=== PATIENT | male | born 1995 | race Caucasian/White ===

== ENCOUNTER 2016-07-16 13:38 | Emergency (ER) | payer MEDICAID ==
[~2016-07-16] VITALS: Ht 172.7 cm; Wt 77.1 kg
--- NOTE | 2016-07-16 13:54 | NUR ---
PT IS IN ROOM #2A. DR BOONE EVALUATED THE PT.
--- NOTE | 2016-07-16 14:07 | NUR ---
PT WAS D/C TO HOME. D/C INSTRUCTIONS GIVEN TO THE PT.
[2016-07-16 14:08] VITALS: BP 141/92
== END 2016-07-16 14:09 | disposition home or self-care (01) ==
LOC: ER 13:38
DX: J06.9 Acute upper respiratory infection, unspecified (principal); F41.9 Anxiety disorder, unspecified; Z90.49 Acquired absence of other specified parts of digestive tract
CPT/HCPCS: A4663

== ENCOUNTER 2016-08-30 13:20 | Emergency (ER) | payer MEDICAID ==
[~2016-08-30] VITALS: Ht 172.7 cm; Wt 72.6 kg
--- NOTE | 2016-08-30 13:56 | NUR ---
NIGHAT MARSH AT THE BEDSIDE.
--- NOTE | 2016-08-30 14:18 | NUR ---
MSE COMP-LETED, PT D/C'D HOME, ACI/RX X1 GIVEN TO PT. PT AMBULATED W/O DIFF/TOOK ALL BELONGINGS.
[2016-08-30 14:20] VITALS: BP 140/72
== END 2016-08-30 14:20 | disposition home or self-care (01) ==
LOC: ER 13:24
DX: N45.1 Epididymitis (principal); F41.9 Anxiety disorder, unspecified
CPT/HCPCS: 76870; A4663

== ENCOUNTER 2016-09-13 18:25 | Emergency (ER) | payer MEDICAID ==
[~2016-09-13] VITALS: Ht 175.3 cm; Wt 77.1 kg
--- NOTE | 2016-09-13 19:15 | NUR ---
Dr. Basilio at bedside for eval.
--- NOTE | 2016-09-13 19:51 | NUR ---
Patient discharged to home in stable conditon. Written and verbal after care instructions given. Patient verbalizes understanding of instructions. Patient left with stable gait, accompanied by family.
[2016-09-13 19:52] VITALS: BP 120/89
== END 2016-09-13 19:53 | disposition home or self-care (01) ==
LOC: ER 18:27
DX: N41.9 Inflammatory disease of prostate, unspecified (principal); Z90.49 Acquired absence of other specified parts of digestive tract
CPT/HCPCS: A4663

== ENCOUNTER 2016-10-03 19:12 | Emergency (ER) | payer MEDICAID ==
[~2016-10-03] VITALS: Ht 170.2 cm; Wt 81.6 kg
[2016-10-03] MEDS ORDERED: DOXYCYCLINE HYCLATE 100 MG TABLET PO ONE (20:00)
--- NOTE | 2016-10-03 20:00 | NUR ---
Patient discharged to home in stable conditon. Written and verbal after care instructions given. Patient verbalizes understanding of instructions.
[2016-10-03] MEDS ORDERED: DOXYCYCLINE HYCLATE 100 MG TABLET ONE (20:07)
== END 2016-10-03 20:01 | disposition home or self-care (01) ==
LOC: ER 19:15
DX: F41.9 Anxiety disorder, unspecified (principal); N41.9 Inflammatory disease of prostate, unspecified; F32.9 Major depressive disorder, single episode, unspecified; Z90.49 Acquired absence of other specified parts of digestive tract
CPT/HCPCS: A4663

== ENCOUNTER 2016-12-13 17:41 | Emergency (ER) | payer MEDICAID ==
[~2016-12-13] VITALS: Ht 172.7 cm; Wt 79.4 kg
[2016-12-13] MEDS ORDERED: VITAMIN B6 PO (17:50)
[2016-12-13] MEDS ORDERED: ISONIAZID 300 MG TABLET (17:50)
[2016-12-13 18:16] LABS: *BILIRUBIN,URIN NEGATIVE (NEGATIVE); *BLOOD, URINE NEGATIVE (NEGATIVE); *COLOR,URINE YELLOW (YELLOW); *KETONES,URINE NEGATIVE (NEGATIVE); *PROTEIN,URINE NEGATIVE (NEGATIVE); LEUKOCYTE ESTERASE ,URINE NEGATIVE (NEGATIVE); NITRITE, URINE NEGATIVE (NEGATIVE); PH,URINE 7.5 (5.0-8.0); UGLUCOSE NEGATIVE (NEGATIVE)
[2016-12-13 18:36] LABS: *CLARITY,URINE HAZY (CLEAR)
[2016-12-13 18:40] LABS: MUCUS,URINE MODERATE /LPF (0-FEW); URINE AMORPHOUS PHOSPHATES MODERATE /HPF; WBC,URINE NONE SEEN /HPF (0-3)
--- NOTE | 2016-12-13 19:39 | NUR ---
Patient discharged to home in stable conditon. Written and verbal after care instructions given. Patient verbalizes understanding of instructions.
== END 2016-12-13 19:39 | disposition home or self-care (01) ==
LOC: ER 17:44
DX: F41.9 Anxiety disorder, unspecified (principal); R39.15 Urgency of urination
CPT/HCPCS: 81001; 99284; A4663

== ENCOUNTER 2017-03-21 19:08 | Emergency (ER) | payer MEDICAID ==
[~2017-03-21] VITALS: Ht 172.7 cm; Wt 79.4 kg
[~2017-03-21 19:08] MED LIST: ISONIAZID 300 MG TABLET; VITAMIN B6 PO
--- NOTE | 2017-03-21 20:34 | NUR ---
Patient discharged to home in stable conditon. Written and verbal after care instructions given. Patient verbalizes understanding of instructions.
== END 2017-03-21 20:35 | disposition home or self-care (01) ==
LOC: ER 19:08
DX: J06.9 Acute upper respiratory infection, unspecified (principal)
CPT/HCPCS: 71010; A4663

== ENCOUNTER 2018-03-24 12:52 | Emergency (ER) | payer MEDICAID ==
[~2018-03-24] VITALS: Ht 170.2 cm; Wt 81.6 kg
--- NOTE | 2018-03-24 13:13 | NUR ---
Dr Earl at the bedside for MSE.
--- NOTE | 2018-03-24 13:29 | NUR ---
Patient discharged to home in stable conditon. Written and verbal after care instructions given. Patient verbalizes understanding of instructions.
[2018-03-24 13:30] VITALS: BP 151/92
== END 2018-03-24 13:37 | disposition home or self-care (01) ==
LOC: ER 12:52
DX: J20.9 Acute bronchitis, unspecified (principal); F41.9 Anxiety disorder, unspecified; I10 Essential (primary) hypertension; Z90.49 Acquired absence of other specified parts of digestive tract; Z79.899 Other long term (current) drug therapy
CPT/HCPCS: A4663

== ENCOUNTER 2020-10-17 12:39 | Emergency (ER) | payer MEDICAID ==
[~2020-10-17] VITALS: Ht 175.3 cm; Wt 90.7 kg
--- NOTE | 2020-10-17 14:25 | NUR ---
Pt states since last week that sounds have been louder than normal, occasionally has ringing and/or buzzing sound, especially in left ear, can cause CLEMENTS, worse at end of day or increased stress, nausea today. Pt denies CP, SOB, dizziness, no other complaints, no distress noted, pt appears anxious.
--- NOTE | 2020-10-17 14:27 | NUR ---
MD at bedside for assessment, patient states his ears have been ringing whenever he hears sound, in particular the left hear has been ringing and is sensitive to sound
--- NOTE | 2020-10-17 14:55 | NUR ---
Patient down for Headt CT at this time
--- NOTE | 2020-10-17 15:09 | NUR ---
Patient back from Head CT at this time
--- NOTE | 2020-10-17 15:33 | NUR ---
Patient discharged to home in stable condition. Written and verbal after care instructions given. Patient verbalizes understanding of instructions. Stressed follow up or return to ER for worsening s/s. Steady gait. No neurological deficits. All belongings with patient.
[2020-10-17 15:34] VITALS: BP 122/76
== END 2020-10-17 15:32 | disposition home or self-care (01) ==
LOC: ER 12:39
DX: G43.909 Migraine, unspecified, not intractable, without status migrainosus (principal); S09.90XA Unspecified injury of head, initial encounter; W21.89XA Striking against or struck by other sports equipment, initial encounter; Y93.18 Activity, surfing, windsurfing and boogie boarding; Y92.832 Beach as the place of occurrence of the external cause; F41.9 Anxiety disorder, unspecified; Z79.899 Other long term (current) drug therapy
CPT/HCPCS: 70450; A4663

== ENCOUNTER 2021-08-29 13:35 | Inpatient (IN) | payer MEDICAID ==
[~2021-08-29] VITALS: Ht 175.3 cm; Wt 88.9 kg
[2021-08-29] MEDS ORDERED: BUSP5TAB3 PO (14:14)
[2021-08-29] MEDS ORDERED: ESCI-9 PO (14:14)
[2021-08-29] MEDS ORDERED: QUET300T2 PO (14:14)
[2021-08-29] MEDS ORDERED: KETOROLAC TROMETHAMINE 15 MG INJ ONE (15:41)
[2021-08-29] MEDS ORDERED: HYDROCODONE/APAP 5-325MG TABLET ONE (15:42)
[2021-08-29] MEDS ORDERED: KETOROLAC TROMETHAMINE 15 MG INJ IM ONE (15:45)
[2021-08-29] MEDS ORDERED: HYDROCODONE/APAP 5-325MG TABLET PO ONE (15:45)
[2021-08-29 17:01] LABS: HEMATOCRIT 42.8 % (36.7-47.1); MEAN CORPUSCULAR HEMOGLOBIN 32.5 uug (23.8-33.4); MEAN CORPUSCULAR VOLUME 93.2 fL (73.0-96.2); PLATELET COUNT (AUTO) 300 K/uL (152-348)
[2021-08-29 17:08] LABS: CREATININE 0.8 mg/dL (0.6-1.3); POTASSIUM 3.9 mmol/L (3.5-5.1)
[2021-08-29] MEDS ORDERED: ACETAMINOPHEN 650 MG SUPP.RECT RC PRN (18:15)
[2021-08-29] MEDS ORDERED: IV D5 1/2 NS 1000 ML 1,000 ML IV PRN (18:15)
[2021-08-29] MEDS ORDERED: LORAZEPAM 2 MG/1 ML VIAL IV PRN (18:15)
[2021-08-29] MEDS ORDERED: ONDANSETRON 4 MG/2 ML VIAL IV PRN (18:15)
[2021-08-29] MEDS ORDERED: MORPHINE SULFATE 2 MG/1 ML DISP.SYRIN IV PRN (18:15)
--- NOTE | 2021-08-29 18:36 | NUR ---
PT'S MOTHER AT BEDSIDE STATING THAT THE PT HAS ANXIETY ISSUES AND HAS BEEN SEEN ON [facility] AND PLACED ON 3 MEDS, RECORDED ON MED RECON, BUT THESE MEDS ARE NOT HELPING AND ASKING IF THESES CAN BE REEVALUATED.
--- NOTE | 2021-08-29 21:25 | NUR ---
Report given to Marie GIBSON
--- NOTE | 2021-08-29 22:00 | NUR ---
Admitted a 25 years old male with Dx of Right Ankle fracture. Patient AAOx4. In no respiratory distress. Slightly anxious during admission. Reassurance provided. Left AC IV intact and patent. Right LE with cast, wrap with harry bandage. Patient for surgery tomorrow with Dr. Clarke. Will be NPO after midnight per Dr. Yates. Routine admission care done. Plan of care initiated. Safety measure initiated and call light within reached.
--- NOTE | 2021-08-29 22:09 | NUR ---
Pt taken to room 321 via tammi with all belongings
[2021-08-29 22:46] VITALS: BP 124/62
[2021-08-29] MEDS ORDERED: QUETIAPINE FUMARATE 100 MG TABLET PO ONE (23:00)
--- NOTE | 2021-08-30 00:45 | NUR ---
Started new IV line on right upper arm #20G. IVF infusing to right upper arm IV.
[2021-08-30 04:10] VITALS: BP 131/59
--- NOTE | 2021-08-30 06:21 | NUR ---
Patient sleeping at this time. NPO status. No complain of pain on RLE. IV site on right upper arm and left AC intact and patent. IVF infusing. Needs attended to and met. Safety measure maintained and call light within reached.
[2021-08-30 06:59] LABS: HEMATOCRIT 38.4 % (36.7-47.1); MEAN CORPUSCULAR HEMOGLOBIN 32.9 uug (23.8-33.4); PLATELET COUNT (AUTO) 261 K/uL (152-348)
[2021-08-30 07:09] LABS: BILIRUBIN,TOTAL 0.7 mg/dL (0.2-1.0); CREATININE 0.8 mg/dL (0.6-1.3); MAGNESIUM 1.9 mg/dL (1.8-2.4); POTASSIUM 3.4 mmol/L (3.5-5.1); TOTAL PROTEIN, SERUM 6.3 g/dL (6.4-8.2)
--- NOTE | 2021-08-30 07:30 | NUR ---
AWAKE ALERT AND VERBALLY RESPONSIVE, ANXIOUS AND WANTS TO GO HOME AFTER SURGERY. AWAITING ORTHO SURGEON TO SEE PATIENT. C/O PAIN RIGHT ANKLE 06/08. ELEVATED WITH PILLOW
[2021-08-30] MEDS ORDERED: VANCOMYCIN 1000 MG VIAL ONE (07:39)
[2021-08-30] MEDS ORDERED: BUPIVACAINE 0.25% 30 ML VIAL ONE (07:39)
[2021-08-30] MEDS: PANTOPRAZOLE SODIUM 40 MG VIAL IV SCH (08:42)
--- NOTE | 2021-08-30 09:18 | NUR ---
PATIENT VERY ANXIOUS AND WANT TO SLEEP, ATIVAN 0.5 MG IVP GIVEN
[2021-08-30] MEDS: POTASSIUM CHLORIDE 50 ML IV SCH ×2 (09:42→10:36)
[2021-08-30 11:00] VITALS: BP 128/62
--- NOTE | 2021-08-30 11:05 | NUR ---
PATIENT WENT TO OR FOR SURGERY REPORT GIVEN TO STAFF
[2021-08-30] MEDS ORDERED: FENTANYL CITRATE 100 MCG/2 ML AMPUL ONE (11:28)
[2021-08-30] MEDS ORDERED: HYDROMORPHONE 2 MG/1 ML DISP.SYRIN ONE (11:29)
[2021-08-30] MEDS ORDERED: MIDAZOLAM HCL 2 MG/2 ML VIAL ONE (11:29)
[2021-08-30] MEDS ORDERED: FAMOTIDINE. 20 MG/2 ML VIAL IV ONE (11:30)
[2021-08-30] MEDS ORDERED: ROCURONIUM BROMIDE 50 MG/5 ML VIAL ONE (11:31)
[2021-08-30] MEDS ORDERED: GLYCOPYRROLATE 0.2 MG/ML VIAL ONE (13:39)
[2021-08-30] MEDS ORDERED: ONDANSETRON 4 MG/2 ML VIAL ONE (13:39)
[2021-08-30] MEDS ORDERED: PROPOFOL 200 MG/20 ML BOTTLE ONE (13:39)
[2021-08-30] MEDS ORDERED: CEFAZOLIN 1 G VIAL ONE (13:39)
[2021-08-30] MEDS ORDERED: LIDOCAINE-MPF 2% 5 ML VIAL ONE (13:39)
[2021-08-30] MEDS ORDERED: METOCLOPRAMIDE HCL 10 MG/2 ML VIAL ONE (13:39)
--- NOTE | 2021-08-30 14:15 | NUR ---
BACK FROM SURGERY STILL DROWSY BUT VERBALLY RESPONSIVE TO QUESTIONS, ROUTINE POST-OP VS TAKEN. SEE V/S RECORDS
[2021-08-30] MEDS: IV D5W-0.45% NS +20 KCL 1,000 ML IV PRN (14:33)
[2021-08-30 14:35] VITALS: BP 125/72
[2021-08-30 15:42] VITALS: BP 131/71
--- NOTE | 2021-08-30 16:50 | NUR ---
PATIENT COMPLAIN OF RIGHT ANKLE PAIN ON THE SURGERY SITE. PATIENT EXPRESS 6/10 PAIN. GAVE MORPHINE 4MG PRN. WILL REASSESS IN 30MINS
[2021-08-30] MEDS: MORPHINE SULFATE 4 MG/1 ML DISP.SYRIN IV PRN ×2 (16:51→21:00)
--- NOTE | 2021-08-30 17:21 | NUR ---
REASSESS PATIENT FOR PAIN. 4/10 PAIN SCALE. ICE PACK APPLIED ON THE RIGHT ANKLE FOR COMFORT
--- NOTE | 2021-08-30 17:40 | NUR ---
DR PORTILLO NOTIFIED OF PATIENT BEING SO ANXIOUS, WANTING TO GO HOME, AGITATED AND USING "FUCKING" WORD ALL THE TIME. ORDERS GIVEN AND CARRIED.
[2021-08-30] MEDS ORDERED: HALOPERIDOL LACTATE 5 MG/1 ML VIAL IM PRN (17:45)
[2021-08-30] MEDS ORDERED: LORAZEPAM 2 MG/1 ML VIAL IV ONE (18:15)
--- NOTE | 2021-08-30 18:45 | NUR ---
PATIENT AGITATED AND VERY ANXIOUS WANT TO GO HOME. LORAZEPAM 2MG WAS ADMINISTERED PER DR LOCKETT. WILL REASSESS. CLOSELY MONITORED AT BEDSIDE
--- NOTE | 2021-08-30 19:00 | NUR ---
Received patient on bed, sleeping, , on room air, not in respiratory distress, no signs of pain noted, Right lower leg kept elevated with 1 pillow.
[2021-08-30] MEDS ORDERED: OLANZAPINE 10 MG VIAL IM PRN (19:15)
--- NOTE | 2021-08-30 19:20 | NUR ---
DR SOW NOTIFIED FOR PSYCH CONSULT WITH ORDERS.
[2021-08-30 20:00] VITALS: BP 128/73
[2021-08-30] MEDS: CEFAZOLIN 1 G in IV DEXTROSE 5% 50 ML IV SCH (20:04)
--- NOTE | 2021-08-30 21:00 | NUR ---
Patient awake, complaint of pain at right lower leg, Morphine 4mg IV given at PRN order.
--- NOTE | 2021-08-30 22:05 | NUR ---
Patient awake, starting to speak "Fucking" words anxious and don`t want to stay for more days in the hospital. Zyprexia 0.5mg IM given at left deltoid muscle.
--- NOTE | 2021-08-30 22:21 | NUR ---
Sleeping at this time, no signs of shortness of breath noted.
--- NOTE | 2021-08-31 00:11 | NUR ---
Awake, requested for snacks, pudding and apple juice given. Complaint of pain at operative site, Morphine 4mg IV given.
[2021-08-31] MEDS: MORPHINE SULFATE 4 MG/1 ML DISP.SYRIN IV PRN ×3 (00:13→09:57)
--- NOTE | 2021-08-31 00:40 | NUR ---
Able to slept after receiving Morphine injection.
[2021-08-31] MEDS: CEFAZOLIN 1 G in IV DEXTROSE 5% 50 ML IV SCH (03:30)
--- NOTE | 2021-08-31 05:28 | NUR ---
Awake, complaint of pain at operative site, Morphine 4mg IV given.
[2021-08-31] MEDS: IV D5W-0.45% NS +20 KCL 1,000 ML IV PRN (05:43)
--- NOTE | 2021-08-31 06:00 | NUR ---
Patient sleeping, no signs of shortness of breath. Patient in calm behavior when he was awake. Vitally stable, for continuity of carre.
[2021-08-31 06:59] LABS: CREATININE 0.9 mg/dL (0.6-1.3); POTASSIUM 3.9 mmol/L (3.5-5.1)
[2021-08-31] MEDS ORDERED: LORAZEPAM 2 MG/1 ML VIAL IV PRN (07:30)
[2021-08-31 07:47] VITALS: BP 130/74
[2021-08-31] MEDS ORDERED: OLANZAPINE 5 MG TABLET PO SCH (09:00)
[2021-08-31] MEDS: PANTOPRAZOLE SODIUM 40 MG VIAL IV SCH (09:45)
--- NOTE | 2021-08-31 12:17 | NUR ---
patient left AMA at 11 am, his mother came to the hospital to pick him up. patient wanted to go home and did not want to receive any treatment. Patient was given crutches to take home with him.
[2021-09-01] MEDS ORDERED: HYDR-4209 PO (14:20)
== END 2021-08-31 11:30 | disposition left against medical advice (07) | DRG 313 ==
LOC: ER 13:35 → MEDSURG3 21:09
PROVIDERS: ADMIT Internal Medicine; ATTEND Internal Medicine
PROC: 0QSJ04Z Reposition Right Fibula with Internal Fixation Device, Open Approach (ICD-10-PCS; principal; 2021-08-30)
DX: S82.891A Other fracture of right lower leg, initial encounter for closed fracture (principal); F29 Unspecified psychosis not due to a substance or known physiological condition; E66.9 Obesity, unspecified; E87.6 Hypokalemia; Z20.822 Contact with and (suspected) exposure to COVID-19; Y93.01 Activity, walking, marching and hiking; Y93.89 Activity, other specified; Y92.89 Other specified places as the place of occurrence of the external cause; Z68.28 Body mass index [BMI] 28.0-28.9, adult; M25.571 Pain in right ankle and joints of right foot
CPT/HCPCS: 36415; 71045; 73600; 73610; 73700; 83735; 85025; 85730; 93005; A4663; C1713; C9113; G0378; J0690; J1170; J1885; J2060; J2250; J2270; J2358; J2405; J2765; J3010; J3370; J3480; J3490

== ENCOUNTER 2021-09-01 13:06 | Emergency (ER) | payer BC, MEDICAID ==
[~2021-09-01] VITALS: Ht 175.3 cm; Wt 86.2 kg
[~2021-09-01 13:06] MED LIST changes: +BUSP5TAB3 PO; +ESCI-9 PO; -ISONIAZID 300 MG TABLET; +QUET300T2 PO; -VITAMIN B6 PO
--- NOTE | 2021-09-01 14:00 | NUR ---
MD at bedside, medical screening exam on progress.
[2021-09-01] MEDS ORDERED: HYDR-4209 PO (14:20)
[2021-09-01] MEDS ORDERED: HYDROCODONE/APAP 5-325MG TABLET ONE (14:24)
--- NOTE | 2021-09-01 14:29 | NUR ---
Patient discharged to home in stable condition. Written and verbal after care instructions given. Patient verbalizes understanding of instructions. Stressed follow up or return to ER for worsening s/s.
[2021-09-01 14:30] VITALS: BP 125/70
[2021-09-01] MEDS ORDERED: HYDROCODONE/APAP 5-325MG TABLET PO ONE (14:30)
== END 2021-09-01 14:30 | disposition home or self-care (01) ==
LOC: ER 13:06
DX: S82.899D Other fracture of unspecified lower leg, subsequent encounter for closed fracture with routine healing (principal); X58.XXXD Exposure to other specified factors, subsequent encounter; Z76.0 Encounter for issue of repeat prescription; F31.9 Bipolar disorder, unspecified; Z79.899 Other long term (current) drug therapy
CPT/HCPCS: A4663

== ENCOUNTER 2022-08-24 20:48 | Emergency (ER) | payer BC, OTHER ==
[~2022-08-24] VITALS: Ht 175.3 cm; Wt 81.6 kg
[~2022-08-24 20:48] MED LIST changes: +HYDR-4209 PO
[2022-08-24 21:31] VITALS: BP 124/78
--- NOTE | 2022-08-24 21:31 | NUR ---
Patient discharged to home in stable condition. Written and verbal after care instructions given. Patient verbalizes understanding of instructions. Stressed follow up or return to ER for worsening s/s. Patient is a/ox4, NAD noted. patient ambulated with steady gait
== END 2022-08-24 21:32 | disposition home or self-care (01) ==
LOC: ER 20:48
DX: S40.011A Contusion of right shoulder, initial encounter (principal); S09.90XA Unspecified injury of head, initial encounter; F41.9 Anxiety disorder, unspecified; Z90.49 Acquired absence of other specified parts of digestive tract; Z79.899 Other long term (current) drug therapy; W20.8XXA Other cause of strike by thrown, projected or falling object, initial encounter; Y93.89 Activity, other specified; Y92.89 Other specified places as the place of occurrence of the external cause; Y99.0 Civilian activity done for income or pay
CPT/HCPCS: A4663

== ENCOUNTER 2023-05-14 19:29 | Emergency (ER) | payer OTHER ==
[~2023-05-14] VITALS: Ht 175.3 cm; Wt 83.9 kg
[2023-05-14 22:18] VITALS: BP 140/79; TEMP 98.5; O2SAT 99
== END 2023-05-14 22:19 | disposition home or self-care (01) ==
LOC: ER 19:37
DX: S52.121A Displaced fracture of head of right radius, initial encounter for closed fracture (principal); S63.591A Other specified sprain of right wrist, initial encounter; S50.01XA Contusion of right elbow, initial encounter; Z98.890 Other specified postprocedural states; Z79.899 Other long term (current) drug therapy; W18.39XA Other fall on same level, initial encounter; Y93.51 Activity, roller skating (inline) and skateboarding; Y92.89 Other specified places as the place of occurrence of the external cause; Y99.8 Other external cause status
CPT/HCPCS: 73080; 73090; 73110; A4606; A4663

== ENCOUNTER 2023-07-31 22:03 | Emergency (ER) | payer OTHER ==
[~2023-07-31] VITALS: Ht 175.3 cm; Wt 83.9 kg
[2023-07-31] MEDS ORDERED: NEOMY/BACITRA/POLYMYXIN B OINT UD PACKET TP ONE (22:51)
[2023-07-31] MEDS: NEOMY/BACITRA/POLYMYXIN B OINT UD PACKET TP ONE (22:56)
[2023-07-31 22:57] VITALS: BP 145/88; TEMP 98.6; O2SAT 99
== END 2023-07-31 22:57 | disposition home or self-care (01) ==
LOC: ER 22:06
DX: S61.011A Laceration without foreign body of right thumb without damage to nail, initial encounter (principal); S76.019A Strain of muscle, fascia and tendon of unspecified hip, initial encounter; Z79.899 Other long term (current) drug therapy; Z98.890 Other specified postprocedural states; W26.8XXA Contact with other sharp object(s), not elsewhere classified, initial encounter; Y93.89 Activity, other specified; Y92.89 Other specified places as the place of occurrence of the external cause; Y99.8 Other external cause status
CPT/HCPCS: A4606; A4663